=== PATIENT | male | born 1930 | race Caucasian/White ===

== ENCOUNTER 2016-04-08 14:29 | Outpatient (CLI) | payer MEDICARE, OTHER | END 2016-04-08 14:30 | disposition home or self-care (01) | DX: M79.89 Other specified soft tissue disorders (principal); R26.89 Other abnormalities of gait and mobility ==

== ENCOUNTER 2016-04-13 12:26 | Emergency (ER) | payer MEDICARE, OTHER | END 2016-04-13 15:38 | disposition home or self-care (01) | DX: S42.012A Anterior displaced fracture of sternal end of left clavicle, initial encounter for closed fracture (principal); W06.XXXA Fall from bed, initial encounter; Z91.81 History of falling; Y92.013 Bedroom of single-family (private) house as the place of occurrence of the external cause; I10 Essential (primary) hypertension; E78.00 Pure hypercholesterolemia, unspecified; I25.10 Atherosclerotic heart disease of native coronary artery without angina pectoris; Z95.1 Presence of aortocoronary bypass graft; M54.9 Dorsalgia, unspecified; G89.29 Other chronic pain ==

== ENCOUNTER 2016-06-01 17:24 | Outpatient (CLI) | payer MEDICARE, OTHER | END 2016-06-01 17:25 | disposition critical access hospital (66) | DX: N39.0 Urinary tract infection, site not specified (principal) | CPT/HCPCS: A0425; A0429 ==